=== PATIENT | male | born 1950 | race Hispanic/Latino ===

== ENCOUNTER → 2018-07-07 | Outpatient (CLI) | payer MEDICARE | END | disposition home or self-care (01) | LOC: SHCH 09:29 | PROVIDERS: ATTEND Internal Medicine Cardiovascular Disease | DX: I10 Essential (primary) hypertension (principal); R55 Syncope and collapse | CPT/HCPCS: 93306 ==

== ENCOUNTER → 2022-03-06 | Day surgery (SDC) | payer MEDICARE ==
[2022-03-04 14:44] LABS: BASOPHILS % (AUTO) 0.3 % (0.0-5.0); EOSINOPHILS % (AUTO) 1.3 % (0.0-8.0); HEMATOCRIT 43.7 % (42-54); LYMPHOCYTES % (AUTO) 27.8 % (21.0-51.0); MEAN CORPUSCULAR HEMOGLOBIN 30.2 pg (27.0-33.0); MEAN CORPUSCULAR HGB CONC 34.3 g/dL (32.0-36.0); MEAN CORPUSCULAR VOLUME 87.9 fL (79-99); NEUTROPHILS % (AUTO) 62.1 % (40.0-77.0); PLATELET COUNT (AUTO) 193 K/uL (130-400); RED BLOOD CELL COUNT(AUTO) 4.97 MIL/uL (4.50-6.20); RED CELL DISTRIBUTION WIDTH 13.2 % (11.0-15.5); WHITE BLOOD COUNT (AUTO) 7.7 K/uL (4.8-10.8)
[2022-03-04 14:51] LABS: CREATININE 1.1 mg/dL (0.5-1.5); POTASSIUM 4.7 mmol/L (3.5-5.1)
[2022-03-05 09:40] VITALS: BP 135/74
[2022-03-06] VITALS (18 sets, daily range): BP systolic 118–147; BP diastolic 60–85
[~2022-03-06] VITALS: Ht 180.3 cm; Wt 107.3 kg
[~2022-03-06] MED LIST: ACET-2247 PO; ACET-3540 PO; AMLO-258 PO; ATOR40TA71 PO; BIOF1TAB8 PO; CEFTRIAXONE 1G VIAL IVP ONE; CEFTRIAXONE 1G VIAL ONE; CETI10CA5 PO; DEXAMETHASONE SOD PHOSPHATE 10MG/ML 1ML VIAL ONE; DUTA0.5C37 PO; EPHEDRINE SULFATE 50 MG/ML AMPULE ONE; FENTANYL CITRATE PF 50 MCG/1 ML 2ML VIAL ONE; GLYCOPYRROLATE 1 MG/5 ML SYRINGE ONE; LACTATED RINGERS 1000ML 1,000 ML IV ONE; LIDOCAINE PF 100MG/5ML (2%) SYRINGE 5ML ONE; MIDAZOLAM HCL 1 MG/ML 2ML VIAL ONE; MORPHINE 4 MG SYG ONE; NEOSTIGMINE 5MG/5ML SYR IV ONE; OMEP40CA21 PO; ONDANSETRON 4MG INJ ONE; OPIUM/BELLADONNA ALKALOIDS 1 EACH SUPP.RECT RC ONE; PHENAZOPYRIDINE HCL 200 MG TABLET ONE; PHENYLEPHRINE HCL 10 MG/ML 1ML VIAL IV ONE; PROPOFOL 10 MG/ML 20ML VIAL IV ONE; RAMI10CA69 PO; ROCURONIUM 10MG/1ML SYR 10 MG/ML ML ONE; SUCCINYLCHOLINE 200MG/10ML SYR ONE; TAMS-1 PO
== END | disposition home or self-care (01) ==
LOC: DAH 06:23
PROVIDERS: ATTEND Urology
DX: N40.1 Benign prostatic hyperplasia with lower urinary tract symptoms (principal); R35.1 Nocturia; I10 Essential (primary) hypertension; K21.9 Gastro-esophageal reflux disease without esophagitis; Z79.899 Other long term (current) drug therapy
CPT/HCPCS: 36415; 52648; 80048; 85025; 87635; 93005; A4215; A4221; A4222; A4223; A4340; A4354; A4358 ×2; A4510; A4600; A4663; A5113; A6260; A6402; C9803; J0330; J0696; J1100; J2001; J2250; J2270; J2370 ×2; J2405 ×2; J2704; J2710; J3010 ×2; J3490 ×2; J7120 ×2